=== PATIENT | male | born 1970 | race Caucasian/White ===

== ENCOUNTER 2018-12-07 15:03 | Emergency (ER) | payer MEDICAID ==
[~2018-12-07] VITALS: Ht 185.4 cm; Wt 86.4 kg
[2018-12-07 15:15] VITALS: BP 139/89; Ht 185.4 cm; Wt 86.4 kg
[2018-12-07] MEDS ORDERED: MUPIROCIN22 GM TOPICAL (16:12)
[2018-12-07] MEDS ORDERED: CLEOCIN HCL300 MG PO (16:12)
== END 2018-12-07 16:30 | disposition home or self-care (01) ==
LOC: D.ER 15:03
DX: L02.512 Cutaneous abscess of left hand (principal)